=== PATIENT | female | born 1980 | race Caucasian/White ===

== ENCOUNTER → 2016-12-10 | Outpatient (CLI) | payer BC ==
[~2016-12-10] MED LIST: MIRENA52 MG IU; MOTRIN 800800 MG/TAB PO; NO HOME MEDICATIONS; NORCO 325 MG-51 TAB PO; PERCOCET 325 MG1 TA2 PO; PRENATAL1 TA1 PO; PYRIDIUM 100MG100 MG PO; SEPTRA DS 8001 TAB PO
== END ==
LOC: COL.RAD 08:07
DX: Z01.89 Encounter for other specified special examinations (principal)

== ENCOUNTER → 2019-12-01 | Outpatient (CLI) | payer OTHER | LOC: MC.RAD 14:26 | DX: Z12.31 Encounter for screening mammogram for malignant neoplasm of breast (principal) ==

== ENCOUNTER → 2023-04-16 | Outpatient (CLI) | payer OTHER | LOC: MC.RAD 10:55 | DX: Z12.31 Encounter for screening mammogram for malignant neoplasm of breast (principal) ==